=== PATIENT | male | born 1985 | race Caucasian/White ===

== ENCOUNTER 2021-12-14 10:32 | Outpatient (CLI) | payer BC ==
[~2021-12-14 10:32] MED LIST: Iopamidol 370 76% 100 ML VIAL ONE
== END 2021-12-14 10:33 | disposition home or self-care (01) ==
LOC: BICCT 10:32 → CT 10:33
PROVIDERS: ATTEND Urology
DX: R31.21 Asymptomatic microscopic hematuria (principal)
CPT/HCPCS: 74177